=== PATIENT | male | born 1975 | race Two or more races ===

== ENCOUNTER 2025-03-21 22:33 | Emergency (ER) | payer OTHER ==
[~2025-03-21] VITALS: Ht 165.1 cm; Wt 81.6 kg
[2025-03-22] MEDS ORDERED: ACET-2812 PO (00:33)
[2025-03-22] MEDS ORDERED: IBUP-1957 PO (00:33)
[2025-03-22 01:05] VITALS: BP 137/94; TEMP 98.3; O2SAT 97
== END 2025-03-22 01:05 | disposition home or self-care (01) ==
LOC: ER 22:35
DX: M25.511 Pain in right shoulder (principal); M25.532 Pain in left wrist; R07.89 Other chest pain; Z59.00 Homelessness unspecified; V18.4XXA Pedal cycle driver injured in noncollision transport accident in traffic accident, initial encounter; Y93.55 Activity, bike riding; Y92.488 Other paved roadways as the place of occurrence of the external cause; Y99.8 Other external cause status
CPT/HCPCS: 71045-TC; 73030-TC; 73110